=== PATIENT | male | born 1990 | race Two or more races ===

== ENCOUNTER 2021-06-20 18:41 | Emergency (ER) | payer OTHER ==
[~2021-06-20] VITALS: Ht 177.8 cm; Wt 80.3 kg
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
--- NOTE | 2021-06-20 20:30 | NUR ---
Patient discharged to home in stable condition. Written and verbal after care instructions given. Patient verbalizes understanding of instruction. Pt ambulatory with a steady gait
[2021-06-20 20:36] VITALS: BP 112/65
== END 2021-06-20 20:30 | disposition home or self-care (01) ==
LOC: ER 18:54
DX: F07.81 Postconcussional syndrome (principal)